=== PATIENT | male | born 1960 | race Caucasian/White ===

== ENCOUNTER → 2024-12-22 | Outpatient (CLI) | payer BC ==
[~2024-12-22] MED LIST: GADOTERATE MEGLUMINE 10 MMOL/20 ML VIAL IV ONE
== END | disposition home or self-care (01) ==
LOC: MRI 08:31
PROVIDERS: ATTEND Internal Medicine
DX: M19.072 Primary osteoarthritis, left ankle and foot (principal); M25.872 Other specified joint disorders, left ankle and foot; M79.672 Pain in left foot